=== PATIENT | male | born 1990 | race Caucasian/White ===

== ENCOUNTER → 2016-08-03 | Outpatient (CLI) | payer MEDICARE, MEDICAID ==
--- OUTSIDE RECORDS SUMMARY | 2016-08-03 15:31 | XMS REPORT | Continuity of Care Document ---
Author Author [facility] Organization [facility] Address Unknown Phone Unavailable Care Team Providers Care [employer] Name Role Phone Babita Hammond PCP [phone] Source Comments Some departments are not documenting in the electronic medical record. If you do not see the information that you expected, contact Release of Information in the Health Information Management department at [phone] for further assistance in locating additional records.[facility] Active Allergies and Adverse Reactions No Known Allergies Current Medications Prescription Sig. Disp. Refills Start End Date Status Date acyclovir (ZOVIRAX) 800 Take 1 Tab by mouth twice 60 Tab 5 12/03/19 Active mg tablet daily. 15 trimethoprim-sulfamethoxa Take 1 Tab by mouth twice 16 Tab 5 02/16/20 Active zole (BACTRIM DS) 160-800 daily twice weekly. Take 15 mg tablet on Mondays and . montelukast (SINGULAIR) Take 1 Tab by mouth at 30 Tab 11 03/02/20 Active 10 mg tablet bedtime daily. 15 LORazepam (ATIVAN) 0.5 mg Take 1 Tab by mouth at 30 Tab 0 05/14/20 Active tablet bedtime as needed for 15 Nausea, Vomiting or Other.... alendronate (FOSAMAX) 70 Take 1 Tab by mouth every 12 Tab 3 06/14/19 Active mg tablet 7 days. Take 1 Tab by 16 mouth every Sunday. Sit up for 30 minutes after taking. AMITRIPTYLINE HCL Apply to affected area up 100 g 1 08/09/19 Active (AMITRIPTYLINE/GABAPENTIN to four times a day as 16 /EMU OIL(#)) 4/4/10 % needed azithromycin (ZITHROMAX) 1 Tab three times weekly. 12 Tab 5 09/10/19 Active 250 mg tablet 16 other medication Diphon Rinse (Benadryl 420 mL 1 10/18/19 Active 100ml, Dexamethasone 16 0.5mg/5ml, Nystatin suspension 60ml, Doxycycline 300mg) Swish and spit 5ml before and after meals 4 times a day. ondansetron hcl (ZOFRAN) Take 1 Tab by mouth every 30 Tab 1 03/13/20 Active 8 mg tablet 8 hours as needed for 16 Nausea or Vomiting. hydrocortisone (CORTEF) Take 2 tabs in the 90 Tab 2 06/06/19 Active 10 mg tablet morning and one tab in 17 the evening with food. budesonide/formoterol Inhale 2 Puffs by mouth 3 Inhaler 3 06/08/19 Active (SYMBICORT) 160/4.5 mcg into the lungs twice 17 inhalation daily. gabapentin (NEURONTIN) Take 3 Caps by mouth 270 Cap 3 06/08/19 Active 300 mg capsule three times daily. 17 ergocalciferol (VITAMIN Take 1 Cap by mouth every 12 Cap 0 07/27/19 Active D-2) 50,000 unit capsule 7 days. 17 oxyCODONE (ROXICODONE) 5 Take 1-2 Tabs by mouth 90 Tab 0 07/26/19 Discontin mg tablet every 4 hours as needed 16 17 ued for Pain ergocalciferol (VITAMIN Take 1 Cap by mouth every 12 Cap 0 04/07/20 07/27/19 Discontin D-2) 50,000 unit capsule 7 days. 16 17 ued sodium polystyrene Take 120 mL by mouth once 120 mL 0 07/27/1907/27 sulfonate (KAYEXALATE) 15 for 1 dose. 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 Max grade 2 with GI symptoms of nausea and diarrhea Physical deconditioning 08/04/2014 Hodgkin lymphoma (HCC) 02/24/2014 Gait instability 10/07/2013 History of peripheral stem cell transplant ([facility]) 10/01/2013 Overview: Date of Transplant:08/10/14 Preparative Regimen:FLU BU Fully ablative/reduced intensity/NST: YAYO Disease:B-cell lymphoma unclassifiable relapsed Hodgkin's Disease status at transplant:2nd relapse resistant / refractory HLA Match:03/13 Donor & Cell source:24 Female unrelated donor PBSC CMV:rec: NEG Donor: POS ABO: rec: O-POS Donor: A-POS CMI index:1 Consents/Studies: YAYO, 8322, processing blood and classification and treatment director: Alyce Villalobos RN DATE OF TRANSPLANT: 09.30.2013 PREPARATIVE REGIMEN: R-BEAC DISEASE: KIRK ZONE LYMPHOMA DISEASE STATUS AT TRANSPLANT: PIF RESISTANT CMV: NEGATIVE CELL SOURCE: PERIPHERAL/ AUTOLOGOUS CONSENTS/STUDIES; AUTO, BLOOD, 8322 COORDINATOR: NELSON HERNANDEZ Neuropathy ([facility]) 09/28/2013 Lymphoma, mixed ([facility]) 09/18/2013 Resolved Problems Problem Noted Date Resolved Date RSV infection 06/21/2016 07/27/2016 Weakness 06/06/2016 06/21/2016 Dizziness 06/06/2016 06/21/2016 Non-intractable vomiting 01/20/2016 06/21/2016 Pneumonia of right lower lobe due to infectious organism ([facility]) 11/27/2015 01/20/2016 Cellulitis of left toe 09/02/2015 01/20/2016 Cough 08/23/2015 09/02/2015 Pneumonia 08/23/2015 01/20/2016 Hyponatremia 07/02/2015 01/20/2016 Ischemia of lower extremity 07/02/2015 06/21/2016 Fall from high chair 06/28/2015 01/20/2016 Cushingoid facies 06/28/2015 01/20/2016 Steroid-induced acne 06/28/2015 01/20/2016 Leg pain, left 06/14/2015 01/20/2016 Elevated LFTs 05/24/2015 06/09/2015 Elevated liver enzymes 05/24/2015 06/09/2015 Cramp of both lower extremities 05/17/2015 05/21/2015 Elevated LFTs 05/17/2015 01/20/2016 Chills (without fever) 05/17/2015 05/21/2015 Folliculitis 03/02/2015 05/17/2015 Decrease in appetite 03/02/2015 05/21/2015 Muscle strain 01/18/2015 05/17/2015 Anemia 01/18/2015 05/17/2015 Nausea 11/09/2014 05/21/2015 Increased sleeping 10/15/2014 05/17/2015 Parainfluenza 10/13/2014 05/17/2015 Cough 10/13/2014 05/17/2015 Fatigue 10/13/2014 05/17/2015 Fall at home 10/01/2014 09/02/2015 Occasional tremors 09/06/2014 10/01/2014 Hyperkalemia 09/06/2014 09/22/2014 Thrombocytopenia (HCC) 09/06/2014 01/20/2016 Episodic headache 09/05/2014 09/02/2015 Fall 09/01/2014 09/22/2014 Hypokalemia 08/25/2014 01/20/2016 Neutropenic fever (HCC) 08/24/2014 09/22/2014 Hypomagnesemia 08/18/2014 09/02/2015 Pancytopenia due to antineoplastic chemotherapy (HCC) 08/17/20142014 Nausea 08/15/2014 09/22/2014 Conditioning chemotherapy prior to peripheral blood stem cell transplant 08/201408/19/2014 Lymphadenopathy 02/07/2014 09/02/2015 Lymphoma (HCC) 02/06/2014 01/20/2016 Pancytopenia due to chemotherapy (HCC) 10/07/2013 09/22/2014 Anxiety 09/24/2013 01/20/2016 Most Recent Encounters Date Type Specialty Providers Description 07/27/2016 Hospital Oncology Rodríguez Magallon MD Encounter 07/27/2016 Office Visit Oncology Ruby Araujo APRN Chest pain, unspecified type (Primary Dx); Low vitamin D level; Hyperkalemia; Other chest pain; Bronchiolitis obliterans syndrome (HCC); History of peripheral stem cell transplant (HCC); 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); Nodular lymphocyte predominant Hodgkin lymphoma, unspecified body region 07/27/2016 Nurse Only Oncology Rodríguez Magallon MD 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); History of peripheral stem cell transplant (HCC); Vitamin D deficiency; Chest pain 07/27/2016 Hospital Radiology Biju Hein MD Arrived Encounter 07/27/2016 Office Visit Pulmonology Biju Hein MD Chest pain, unspecified type (Primary Dx); SOB (shortness of breath); Pulmonary nodule; Hx of Hodgkin's lymphoma; Bronchiolitis obliterans syndrome (HCC); 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); RSV infection; Cardiac angina (HCC) 07/27/2016 Hospital Biju Hein MD Encounter 07/27/2016 Telephone Pulmonology Biju Hein MD Results 07/27/2016 Screening Form 07/24/2016 Telephone Oncology Eileen Richey RN Medical Question 06/21/2016 Office Visit Oncology Rodríguez Magallon MD 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) (Primary Dx); History of peripheral stem cell transplant (HCC); Nodular sclerosing Hodgkin's lymphoma, unspecified body region (HCC); RSV infection; Adrenal insufficiency (HCC); Bronchiolitis obliterans syndrome (HCC); Rash 06/21/2016 Nurse Only Oncology Rodríguez Magallon MD 06/21/2016 Documentation Sony Zheng 06/08/2016 Refill Oncology Eileen Richey, MAXWELL 06/06/2016 Hospital Radiology Rodríguez Magallon MD Encounter 06/06/2016 Office Visit Oncology Aldair House DO Generalized abdominal Rodríguez Magallon MD pain (Primary Dx); H/O peripheral stem cell transplant (HCC); Night sweats; 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); History of peripheral stem cell transplant (HCC); Weakness; Other fatigue; Dizziness; Bronchiolitis obliterans syndrome (HCC); Nodular sclerosing Hodgkin's lymphoma, unspecified body region (HCC) 06/06/2016 Hospital Oncology Aldair House DO Encounter 06/06/2016 Screening Form 06/06/2016 Documentation Oncology Loan Encarnacion RN History of peripheral stem cell transplant (HCC) (Primary Dx) 06/05/2016 Telephone Oncology Leelee Sanches, MAXWELL Gland Swelling 06/05/2016 Orders Only Oncology Leelee Sanches RN H/O peripheral stem cell transplant (HCC) (Primary Dx); Night sweats 05/18/2016 Office Visit Oncology Dave Sepulveda MD 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) (Primary Dx); History of peripheral stem cell transplant (HCC); Nodular lymphocyte predominant Hodgkin lymphoma, unspecified body region (HCC); Vitamin D deficiency 05/18/2016 Nurse Only Oncology Dave Sepulveda MD H/O stem cell transplant (HCC) Immunizations Name Dates Previously Given Next Due Acthib Vaccine 07/26/2015, 04/19/2015, 02/15/2015, 04/07/2014 Flu Vaccine 03/06/2016, 02/15/2015, 04/28/2014 Quadrivalent=>3 Yo (Preservative Free) Hepatitis A Vaccine 04/07/2014 Hepatitis B Vaccine Adult 04/19/2015, 02/15/2015, 04/07/2014 3 Dose IM IPV 07/26/2015, 04/19/2015, 02/15/2015, 04/07/2014 Meningococcal Conjug 02/15/2015, 04/07/2014 Vaccine Pneumococcal 07/26/2015, 04/19/2015, 02/15/2015, 04/07/2014 Vaccine(13-[facility]/immunocompromised adult) Tdap Vaccine 07/26/2015, 04/19/2015, 02/15/2015, 04/07/2014 Social History Tobacco Use Types Packs/Day Years Used Date Never Smoker Smokeless Tobacco: Never Used Tobacco Cessation: Counseling Given: No Comments: Alcohol Use Drinks/Week oz/Week Comments No Last Filed Vital Signs Vital Sign Reading Time Taken Blood Pressure 115/62 07/27/2016 11:11 AM [employer] Pulse 67 07/27/2016 11:11 AM [employer] Temperature 36.4 C (97.6 F) 07/27/2016 11:11 AM [employer] Respiratory Rate 16 07/27/2016 11:11 AM [employer] Height 1.88 m (6' 2.02") 07/27/2016 11:11 AM [employer] Weight 74.299 kg (163 lb 12.8 07/27/2016 11:11 AM [employer] oz) Body Mass Index 21.02 07/27/2016 11:11 AM [employer] Oxygen Saturation 98% 07/27/2016 11:11 AM [employer] Plan of Care Date Type Specialty Providers Description 08/10/2016 Appointment Oncology 08/10/2016 Appointment Oncology Rodríguez Magallon MD [address] [facility] [address] [place] [address] [phone] (Fax) Health Maintenance Due Date Last Done Comments Physical (Comprehensive) 09/03/1998 Exam Influenza Vaccine 02/02/2017 03/06/2016, 02/15/2015, 04/28/2014 Tetanus Vaccine 07/26/2025 07/26/2015, 04/19/2015, 02/15/2015 Additional history exists Pertussis Vaccine Completed 07/26/2015, 04/19/2015, 02/15/2015 Additional history exists Results from Last 3 Months URIC ACID (07/27/2016 11:00 AM) Component Value Range Uric Acid 3.3 (L) 4.0-8.0 MG/DL MAGNESIUM (07/27/2016 11:00 AM) Component Value Range Magnesium 2.0 1.6-2.6 mg/dL LDH-LACTATE DEHYDROGENASE (07/27/2016 11:00 AM)Only the most recent of 2 results within the time period is included. Component Value Range Lactate Dehydrogenase 331 (H) 100-210 U/L TROPONIN-I (07/27/2016 11:00 AM) Component Value Range Troponin-I <0.01 0.0-0.05 NG/ML 25-OH VITAMIN D (D2 + D3) (07/27/2016 11:00 AM) Component Value Range Vitamin D(25-OH)Total 25.0 (L) 30-80 NG/ML Specimen Blood COMPREHENSIVE METABOLIC PANEL (07/27/2016 11:00 AM)Only the most recent of 4 results within the time period is included. Component Value Range Sodium 133 (L) 137-147 MMOL/L Potassium 5.6 (H) 3.5-5.1 MMOL/L Chloride 101 98-110 MMOL/L Glucose 80 70-100 MG/DL Blood Urea Nitrogen 9 7-25 MG/DL Creatinine 0.67 0.4-1.24 MG/DL Calcium 9.6 8.5-10.6 MG/DL Total Protein 7.5 6.0-8.0 G/DL Total Bilirubin 0.3 0.3-1.2 MG/DL Albumin 4.0 3.5-5.0 G/DL Alk Phosphatase 177 (H) 25-110 U/L AST (SGOT) 38 7-40 U/L CO2 31 (H) 21-30 MMOL/L ALT (SGPT) 41 7-56 U/L Anion Gap 1 (L) 3-12 eGFR Non >60Comment: >60 mL/min The eGFR is not validated for use in drug dosing adjustments. Continue to use estimated creatinine clearance per dosing reference text. Please contact the Clinical Pharmacist for questions. eGFR >60Comment: >60 mL/min The eGFR is not validated for use in drug dosing adjustments. Continue to use estimated creatinine clearance per dosing reference text. Please contact the Clinical Pharmacist for questions. Specimen Blood CBC AND DIFF (07/27/2016 11:00 AM)Only the most recent of 4 results within the time period is included. Component Value Range White Blood Cells 6.1 4.5-11.0 K/UL RBC 4.66 4.4-5.5 M/UL Hemoglobin 14.1 13.5-16.5 GM/DL Hematocrit 41.7 40-50 % MCV 89.6 80-100 FL MCH 30.2 26-34 PG MCHC 33.7 32.0-36.0 G/DL RDW 14.0 11-15 % Platelet Count 268 150-400 K/UL MPV 7.4 7-11 FL Neutrophils 56 41-77 % Lymphocytes 28 24-44 % Monocytes 10 4-12 % Eosinophils 5 0-5 % Basophils 1 0-2 % Absolute Neutrophil Count 3.50 1.8-7.0 K/UL Absolute Lymph Count 1.70 1.0-4.8 K/UL Absolute Monocyte Count 0.60 0-0.80 K/UL Absolute Eosinophil Count 0.30 0-0.45 K/UL Absolute Basophil Count 0.00 0-0.20 K/UL Specimen Blood CTA CHEST WO/W CONTRAST+POST IMPRESSION (07/27/2016 10:10 AM) Impressions 1. No evidence of pulmonary embolism. 2. No significant change in scattered irregular nodular opacities. This again most likely represents sequela of atypical infection. 3. Stable partially calcified and noncalcified mediastinal lymphadenopathy. Imaging surveillance is suggested. Finalized by Ramo Comer M.D. on 07/27/2016 10:35 AM. Dictated by Ramo Comer M.D. on 07/27/2016 10:20 AM. Narrative CTA Chest Clinical Indication: Shortness of breath. Chest pain. Technique: Multiple contiguous axial CT images were obtained through the chest with contrast. 70 ml of Isovue-370 was given intravenously. Image postprocessing was obtained according to the PE protocol. Comparison: June 06, [address] Findings: Axilla, Mediastinum and Sepideh: Partially calcified mediastinal lymph nodes are again noted. Moderate noncalcified mediastinal lymphadenopathy is again noted. The previously identified right paratracheal conglomerate is unchanged measuring 3.5 x 2.5 cm on series 3, image 73. The partially calcified anterior mediastinal anand conglomerate is also unchanged measuring 3.0 x 1.3 cm on image 98. Heart and Great Vessels: There are no filling defects in the pulmonary arteries identified to suggest pulmonary embolism. The heart size is Normal.There is no pericardial effusion. Lungs and Pleura: Scattered small irregular nodular opacities are again seen in both lungs. A technical account representative right upper lobe nodule measures 1.0 cm on series 3 , image 86 which is unchanged in size. Others remain unchanged such as in the right lung on image 71, 95, 115 and 147, as well as in the left lung on image 68 , 69 and 178, for example. Suture material and scarring is again seen in the anterior right lung base.No pleural effusions. Chest Wall and Osseous Structures: No destructive osseous lesions. Visualized Upper Abdomen: No significant upper abdominal abnormalities are identified. Procedure Note Interface, Radiant Results - Nicolle Jul 27, 2016 10:38 AM [employer] CTA Chest Clinical Indication: Shortness of breath. Chest pain. Technique: Multiple contiguous axial CT images were obtained through the chest with contrast. 70 ml of Isovue-370 was given intravenously. Image postprocessing was obtained according to the PE protocol. Comparison: June 06, [address] Findings: Axilla, Mediastinum and Sepideh: Partially calcified mediastinal lymph nodes are again noted. Moderate noncalcified mediastinal lymphadenopathy is again noted. The previously identified right paratracheal conglomerate is unchanged measuring 3.5 x 2.5 cm on series 3, image 73. The partially calcified anterior mediastinal anand conglomerate is also unchanged measuring 3.0 x 1.3 cm on image 98. Heart and Great Vessels: There are no filling defects in the pulmonary arteries identified to suggest pulmonary embolism. The heart size is Normal.There is no pericardial effusion. Lungs and Pleura: Scattered small irregular nodular opacities are again seen in both lungs. A technical account representative right upper lobe nodule measures 1.0 cm on series 3 , image 86 which is unchanged in size. Others remain unchanged such as in the right lung on image 71, 95, 115 and 147, as well as in the left lung on image 68 , 69 and 178, for example. Suture material and scarring is again seen in the anterior right lung base. No pleural effusions. Chest Wall and Osseous Structures: No destructive osseous lesions. Visualized Upper Abdomen: No significant upper abdominal abnormalities are identified. IMPRESSION 1. No evidence of pulmonary embolism. 2. No significant change in scattered irregular nodular opacities. This again most likely represents sequela of atypical infection. 3. Stable partially calcified and noncalcified mediastinal lymphadenopathy. Imaging surveillance is suggested. Finalized by Ramo Comer M.D. on 07/27/2016 10:35 AM. Dictated by Ramo Comer M.D. on 07/27/2016 10:20 AM. OR ECG ROUTINE ECG W/LEAST 12 LDS W/I&R (07/27/2016 9:27 AM)PFT COMPLETE PULM FUNCTION (07/27/2016 7:47 AM) Component Value Range FVC-Pre 4.22 L FVC-%Pred-pre 67 % FEV1-Pre 3.66 L FEV1-%Pred-Pre 71 % [id number]-Hay 3.71 L/sec IYX2161-%Pred-Pre 72 % VCSVC-Pre 4.20 L ICSVC-Pre 2.51 L ERVSVC-Pre 1.68 L PEF-Pre 505.9 L/min TGVPleth-Pre 3.29 L RVPleth-Pre 1.69 L RVPleth-%Pred-Pre 97 % TLCPleth-Pre 5.81 L TLCPleth-%Pred-Pre 75 % DLCOunc-Pred 38.14 ml/min/mmHg DLCOunc-Pre 27.07 ml/min/mmHg DLCOunc-%Pred-Pre 70 % DLCOunc-SD 6.04 ml/min/mmHg DLCOunc-LLN 26.06 ml/min/mmHg DLCOunc-ULN 50.22 ml/min/mmHg DLCOunc-#SD -1.833 ml/min/mmHg DLVA-Pred 5.10 ml/min/mmHg/L DLVA-Pre 5.01 ml/min/mmHg/L DLVA-%Pred-Pre 98 % DLVA-SD 0.73 ml/min/mmHg/L DLVA-LLN 3.64 ml/min/mmHg/L DLVA-ULN 6.56 ml/min/mmHg/L DLVA-#SD -0.121 ml/min/mmHg/L CORTISOL 30 MINUTES POST (06/06/2016 11:10 AM) Component Value Range Cortisol 30 Min 18.3 ug/dL Specimen Blood CORTISOL BASELINE (06/06/2016 10:11 AM) Component Value Range Cortisol Baseline 13.5 ug/dL Specimen Blood CORTISOL 60 MINUTES POST (06/06/2016 10:11 AM) Component Value Range Cortisol 60 Min 19.6 ug/dL Specimen Blood RVP VIRAL PANEL PCR (06/06/2016 10:11 AM) Component Value Range Specimen Source NASAL WASH Adenovirus NOT DETECTED Coronavirus 229E NOT DETECTED Coronavirus HKU1 NOT DETECTED Coronavirus NL63 NOT DETECTED Coronavirus OC43 NOT DETECTED Human Metapneumovirus NOT DETECTED Human NOT DETECTED Rhinovirus/ENTEROVIRUS Influenza A H1N1 2009 NOT DETECTED Influenza A H1 NOT DETECTED Influenza A H3 NOT DETECTED Influenza B NOT DETECTED Parainfluenza 1 NOT DETECTED Parainfluenza 2 NOT DETECTED Parainfluenza 3 NOT DETECTED Parainfluenza 4 NOT DETECTED RSV DETECTED Bordetella Pertussis NOT DETECTED Chlamydophila Pneumoniae NOT DETECTED Mycoplasma Pneumoniae NOT DETECTED Specimen Nasal Wash CT ABDOMEN W CONTRAST (06/06/2016 9:59 AM) Impressions CHEST: 1.Improvement in the nodular infiltrate within the right lower lobe, likely representing improvement in opportunistic infection with minimal residual scarring. 2.Unchanged ill-defined opacities and soft tissue thickening within the right perihilar region and upper lungs. Given recent negative PET imaging, this is favored to represent post therapeutic scarring. 3.High-resolution images demonstrate no significant bronchiectasis, fibrosis , or air trapping. 4.Unchanged mediastinal lymphadenopathy, compatible with treated lymphoma. 5.Unchanged sclerotic lesion within the T3 vertebral body, which remains compatible with treated osseous involvement by lymphoma. ABDOMEN: No abdominopelvic mass or lymphadenopathy to suggest active lymphoma. By my electronic signature, I attest that I have personally reviewed the images for this examination and formulated the interpretations and opinions expressed in this report Finalized by Bruce High D.O. on 06/06/2016 12:31 PM. Dictated by Rod Kitchen M.D. on 06/06/2016 9:[address] CHEST WITHOUT CONTRAST AND ABDOMEN WITH CONTRAST CLINICAL HISTORY: 25-year-old male, Hodgkin lymphoma status post peripheral stem cell transplant, generalized abdominal pain, cough. TECHNIQUE: Multiple contiguous axial images were obtained through the chest without IV contrast and abdomen with IV contrast. Inspiratory, expiratory, portal venous and delayed imaging was obtained. Post processing coronal and sagittal reconstruction images were made from the axial images. COMPARISON: PET scan April 06, 2016, CT chest November 22, 2015, CT CAP February 21, 2015. IV CONTRAST: Isovue-370 BOWEL CONTRAST: None CHEST FINDINGS: Lower Neck: Unremarkable. Axilla, Mediastinum and Sepideh: No axillary lymphadenopathy. There is persistent mediastinal lymphadenopathy. There has been no significant change in size of the right paratracheal lymph node conglomerate, measuring 3.5 x 2.5 cm (series 2 image 17), previously 3.5 x 2.4 cm. There has been no significant change in size of the partially calcified anterior mediastinal anand conglomerate, measuring 3.0 x 1.3 cm (series 2 image 25), previously 2.8 x 1.3 cm. No definite hilar lymphadenopathy is identified, although evaluation is limited in the absence of IV contrast. Heart and Great Vessels: The heart remains normal in size with trace pericardial fluid. The thoracic aorta is normal in caliber. Airway, Lungs and Pleura: The central airways are widely patent. No pleural effusion, pneumothorax, or lobar consolidation is identified. There has been no significant change of ill-defined patchy opacities within the right perihilar region and bilateral upper lungs (series 2 images 18, 19, and 23). There has been slight improvement in the nodular infiltrate within the right lower lobe ( series 2 image 31). Inspiratory and expiratory images again demonstrate no significant bronchiectasis, fibrosis, or air trapping. Stable appearance of suture material along the medial aspect of the right anterior lung. Chest Wall and Osseous Structures: Mild thoracic spondylosis. A well circumscribed sclerotic lesion within the T3 vertebral body is unchanged in appearance. No destructive osseous lesions are identified. ABDOMEN FINDINGS: Liver and Biliary system: The liver remains normal in size. No focal hepatic lesions are identified. The main portal vein is patent. No calcified gallstones are identified. Spleen: The spleen is normal in size. No focal splenic lesions are identified. Adrenal Glands and Kidneys: Unremarkable. Pancreas and Retroperitoneum: The pancreas is unremarkable. No retroperitoneal lymphadenopathy. Aorta and Major Vessels: The abdominal aorta is normal in caliber. Bowel, Mesentery and Peritoneal space: Only minimal ingested oral contrast is visualized within the gastric fundus. The visualized loops of large and small bowel are normal in caliber. No obstruction or ascites. Abdominal wall and Osseous Structures: Mild multilevel Schmorl's node deformities are redemonstrated. No destructive osseous lesions are identified. Procedure Note Interface, Radiant Results - Tue Jun 06, 2016 12:34 [address] [employer] CT CHEST WITHOUT CONTRAST AND ABDOMEN WITH CONTRAST CLINICAL HISTORY: 25-year-old male, Hodgkin lymphoma status post peripheral stem cell transplant , generalized abdominal pain, cough. TECHNIQUE: Multiple contiguous axial images were obtained through the chest without IV contrast and abdomen with IV contrast. Inspiratory, expiratory, portal venous and delayed imaging was obtained. Post processing coronal and sagittal reconstruction images were made from the axial images. COMPARISON: PET scan April 06, 2016, CT chest November 22, 2015, CT CAP February 21, 2015. IV CONTRAST: Isovue-370 BOWEL CONTRAST: None CHEST FINDINGS: Lower Neck: Unremarkable. Axilla, Mediastinum and Sepideh: No axillary lymphadenopathy. There is persistent mediastinal lymphadenopathy. There has been no significant change in size of the right paratracheal lymph node conglomerate, measuring 3.5 x 2.5 cm (series 2 image 17), previously 3.5 x 2.4 cm. There has been no significant change in size of the partially calcified anterior mediastinal anand conglomerate, measuring 3.0 x 1.3 cm (series 2 image 25), previously 2.8 x 1.3 cm. No definite hilar lymphadenopathy is identified, although evaluation is limited in the absence of IV contrast. Heart and Great Vessels: The heart remains normal in size with trace pericardial fluid. The thoracic aorta is normal in caliber. Airway, Lungs and Pleura: The central airways are widely patent. No pleural effusion, pneumothorax, or lobar consolidation is identified. There has been no significant change of ill-defined patchy opacities within the right perihilar region and bilateral upper lungs (series 2 images 18, 19, and 23). There has been slight improvement in the nodular infiltrate within the right lower lobe ( series 2 image 31). Inspiratory and expiratory images again demonstrate no significant bronchiectasis, fibrosis, or air trapping. Stable appearance of suture material along the medial aspect of the right anterior lung. Chest Wall and Osseous Structures: Mild thoracic spondylosis. A well circumscribed sclerotic lesion within the T3 vertebral body is unchanged in appearance. No destructive osseous lesions are identified. ABDOMEN FINDINGS: Liver and Biliary system: The liver remains normal in size. No focal hepatic lesions are identified. The main portal vein is patent. No calcified gallstones are identified. Spleen: The spleen is normal in size. No focal splenic lesions are identified. Adrenal Glands and Kidneys: Unremarkable. Pancreas and Retroperitoneum: The pancreas is unremarkable. No retroperitoneal lymphadenopathy. Aorta and Major Vessels: The abdominal aorta is normal in caliber. Bowel, Mesentery and Peritoneal space: Only minimal ingested oral contrast is visualized within the gastric fundus. The visualized loops of large and small bowel are normal in caliber. No obstruction or ascites. Abdominal wall and Osseous Structures: Mild multilevel Schmorl's node deformities are redemonstrated. No destructive osseous lesions are identified. IMPRESSION CHEST: 1. Improvement in the nodular infiltrate within the right lower lobe, likely representing improvement in opportunistic infection with minimal residual scarring. 2. Unchanged ill-defined opacities and soft tissue thickening within the right perihilar region and upper lungs. Given recent negative PET imaging, this is favored to represent post therapeutic scarring. 3. High-resolution images demonstrate no significant bronchiectasis, fibrosis , or air trapping. 4. Unchanged mediastinal lymphadenopathy, compatible with treated lymphoma. 5. Unchanged sclerotic lesion within the T3 vertebral body, which remains compatible with treated osseous involvement by lymphoma. ABDOMEN: No abdominopelvic mass or lymphadenopathy to suggest active lymphoma. By my electronic signature, I attest that I have personally reviewed the images for this examination and formulated the interpretations and opinions expressed in this report Finalized by Bruce High D.O. on 06/06/2016 12:31 PM. Dictated by Rod Kitchen M.D. on 06/06/2016 9:[address] CHEST WO CONTRAST (06/06/2016 9:59 AM) Impressions CHEST: 1.Improvement in the nodular infiltrate within the right lower lobe, likely representing improvement in opportunistic infection with minimal residual scarring. 2.Unchanged ill-defined opacities and soft tissue thickening within the right perihilar region and upper lungs. Given recent negative PET imaging, this is favored to represent post therapeutic scarring. 3.High-resolution images demonstrate no significant bronchiectasis, fibrosis , or air trapping. 4.Unchanged mediastinal lymphadenopathy, compatible with treated lymphoma. 5.Unchanged sclerotic lesion within the T3 vertebral body, which remains compatible with treated osseous involvement by lymphoma. ABDOMEN: No abdominopelvic mass or lymphadenopathy to suggest active lymphoma. By my electronic signature, I attest that I have personally reviewed the images for this examination and formulated the interpretations and opinions expressed in this report Finalized by Bruce High D.O. on 06/06/2016 12:31 PM. Dictated by Rod Kitchen M.D. on 06/06/2016 9:[address] CHEST WITHOUT CONTRAST AND ABDOMEN WITH CONTRAST CLINICAL HISTORY: 25-year-old male, Hodgkin lymphoma status post peripheral stem cell transplant, generalized abdominal pain, cough. TECHNIQUE: Multiple contiguous axial images were obtained through the chest without IV contrast and abdomen with IV contrast. Inspiratory, expiratory, portal venous and delayed imaging was obtained. Post processing coronal and sagittal reconstruction images were made from the axial images. COMPARISON: PET scan April 06, 2016, CT chest November 22, 2015, CT CAP February 21, 2015. IV CONTRAST: Isovue-370 BOWEL CONTRAST: None CHEST FINDINGS: Lower Neck: Unremarkable. Axilla, Mediastinum and Sepideh: No axillary lymphadenopathy. There is persistent mediastinal lymphadenopathy. There has been no significant change in size of the right paratracheal lymph node conglomerate, measuring 3.5 x 2.5 cm (series 2 image 17), previously 3.5 x 2.4 cm. There has been no significant change in size of the partially calcified anterior mediastinal anand conglomerate, measuring 3.0 x 1.3 cm (series 2 image 25), previously 2.8 x 1.3 cm. No definite hilar lymphadenopathy is identified, although evaluation is limited in the absence of IV contrast. Heart and Great Vessels: The heart remains normal in size with trace pericardial fluid. The thoracic aorta is normal in caliber. Airway, Lungs and Pleura: The central airways are widely patent. No pleural effusion, pneumothorax, or lobar consolidation is identified. There has been no significant change of ill-defined patchy opacities within the right perihilar region and bilateral upper lungs (series 2 images 18, 19, and 23). There has been slight improvement in the nodular infiltrate within the right lower lobe ( series 2 image 31). Inspiratory and expiratory images again demonstrate no significant bronchiectasis, fibrosis, or air trapping. Stable appearance of suture material along the medial aspect of the right anterior lung. Chest Wall and Osseous Structures: Mild thoracic spondylosis. A well circumscribed sclerotic lesion within the T3 vertebral body is unchanged in appearance. No destructive osseous lesions are identified. ABDOMEN FINDINGS: Liver and Biliary system: The liver remains normal in size. No focal hepatic lesions are identified. The main portal vein is patent. No calcified gallstones are identified. Spleen: The spleen is normal in size. No focal splenic lesions are identified. Adrenal Glands and Kidneys: Unremarkable. Pancreas and Retroperitoneum: The pancreas is unremarkable. No retroperitoneal lymphadenopathy. Aorta and Major Vessels: The abdominal aorta is normal in caliber. Bowel, Mesentery and Peritoneal space: Only minimal ingested oral contrast is visualized within the gastric fundus. The visualized loops of large and small bowel are normal in caliber. No obstruction or ascites. Abdominal wall and Osseous Structures: Mild multilevel Schmorl's node deformities are redemonstrated. No destructive osseous lesions are identified. Procedure Note Interface, Radiant Results - Tue Jun 06, 2016 12:34 PM [employer] CT CHEST WITHOUT CONTRAST AND ABDOMEN WITH CONTRAST CLINICAL HISTORY: 25-year-old male, Hodgkin lymphoma status post peripheral stem cell transplant , generalized abdominal pain, cough. TECHNIQUE: Multiple contiguous axial images were obtained through the chest without IV contrast and abdomen with IV contrast. Inspiratory, expiratory, portal venous and delayed imaging was obtained. Post processing coronal and sagittal reconstruction images were made from the axial images. COMPARISON: PET scan April 06, 2016, CT chest November 22, 2015, CT CAP February 21, 2015. IV CONTRAST: Isovue-370 BOWEL CONTRAST: None CHEST FINDINGS: Lower Neck: Unremarkable. Axilla, Mediastinum and Sepideh: No axillary lymphadenopathy. There is persistent mediastinal lymphadenopathy. There has been no significant change in size of the right paratracheal lymph node conglomerate, measuring 3.5 x 2.5 cm (series 2 image 17), previously 3.5 x 2.4 cm. There has been no significant change in size of the partially calcified anterior mediastinal anand conglomerate, measuring 3.0 x 1.3 cm (series 2 image 25), previously 2.8 x 1.3 cm. No definite hilar lymphadenopathy is identified, although evaluation is limited in the absence of IV contrast. Heart and Great Vessels: The heart remains normal in size with trace pericardial fluid. The thoracic aorta is normal in caliber. Airway, Lungs and Pleura: The central airways are widely patent. No pleural effusion, pneumothorax, or lobar consolidation is identified. There has been no significant change of ill-defined patchy opacities within the right perihilar region and bilateral upper lungs (series 2 images 18, 19, and 23). There has been slight improvement in the nodular infiltrate within the right lower lobe ( series 2 image 31). Inspiratory and expiratory images again demonstrate no significant bronchiectasis, fibrosis, or air trapping. Stable appearance of suture material along the medial aspect of the right anterior lung. Chest Wall and Osseous Structures: Mild thoracic spondylosis. A well circumscribed sclerotic lesion within the T3 vertebral body is unchanged in appearance. No destructive osseous lesions are identified. ABDOMEN FINDINGS: Liver and Biliary system: The liver remains normal in size. No focal hepatic lesions are identified. The main portal vein is patent. No calcified gallstones are identified. Spleen: The spleen is normal in size. No focal splenic lesions are identified. Adrenal Glands and Kidneys: Unremarkable. Pancreas and Retroperitoneum: The pancreas is unremarkable. No retroperitoneal lymphadenopathy. Aorta and Major Vessels: The abdominal aorta is normal in caliber. Bowel, Mesentery and Peritoneal space: Only minimal ingested oral contrast is visualized within the gastric fundus. The visualized loops of large and small bowel are normal in caliber. No obstruction or ascites. Abdominal wall and Osseous Structures: Mild multilevel Schmorl's node deformities are redemonstrated. No destructive osseous lesions are identified. IMPRESSION CHEST: 1. Improvement in the nodular infiltrate within the right lower lobe, likely representing improvement in opportunistic infection with minimal residual scarring. 2. Unchanged ill-defined opacities and soft tissue thickening within the right perihilar region and upper lungs. Given recent negative PET imaging, this is favored to represent post therapeutic scarring. 3. High-resolution images demonstrate no significant bronchiectasis, fibrosis , or air trapping. 4. Unchanged mediastinal lymphadenopathy, compatible with treated lymphoma. 5. Unchanged sclerotic lesion within the T3 vertebral body, which remains compatible with treated osseous involvement by lymphoma. ABDOMEN: No abdominopelvic mass or lymphadenopathy to suggest active lymphoma. By my electronic signature, I attest that I have personally reviewed the images for this examination and formulated the interpretations and opinions expressed in this report Finalized by Bruce High D.O. on 06/06/2016 12:31 PM. Dictated by Rod Kitchen M.D. on 06/06/2016 9:50 AM.
[2016-08-03 15:38] LABS: BASOPHILS % (AUTO) 0 % (0-10); EOSINOPHILS # (AUTO) 0.4 10^3/uL (0.0-0.3); EOSINOPHILS % (AUTO) 5 % (0-10); LYMPHOCYTES # (AUTO) 1.9 X 10^3 (1.0-4.0); LYMPHOCYTES % (AUTO) 25 % (12-44); MEAN CORPUSCULAR HEMOGLOBIN 30 PG (25-34); MEAN CORPUSCULAR HGB CONC 34 G/DL (32-36); MEAN CORPUSCULAR VOLUME 88 FL (80-99); MEAN PLATELET VOLUME 9.1 FL (7.4-10.4); MONOCYTES # (AUTO) 0.9 X 10^3 (0.0-1.0); MONOCYTES % (AUTO) 12 % (0-12); NEUTROPHILS # (AUTO) 4.3 X 10^3 (1.8-7.8); NEUTROPHILS % (AUTO) 58 % (42-75); PLATELET COUNT 300 10^3/uL (130-400); RED BLOOD COUNT 4.37 10^6/uL (4.35-5.85); RED CELL DISTRIBUTION WIDTH 13.8 % (10.0-14.5); WHITE BLOOD COUNT 7.5 10^3/uL (4.3-11.0)
[2016-08-03 16:10] LABS: ALANINE AMINOTRANSFERASE 47 U/L (0-55); ALBUMIN 3.9 G/DL (3.2-4.5); ANION GAP 9 MMOL/L (5-14); ASPARTATE AMINO TRANSFERASE 43 U/L (5-34); BILIRUBIN,TOTAL 0.3 MG/DL (0.1-1.0); BLOOD UREA NITROGEN 10 MG/DL (7-18); BUN/CREATININE RATIO 14; CALCIUM 9.2 MG/DL (8.5-10.1); CARBON DIOXIDE 26 MMOL/L (21-32); CHLORIDE 104 MMOL/L (98-107); CREATININE SERUM 0.69 MG/DL (0.60-1.30); GFR ESTIMATED > 60; GLUCOSE 77 MG/DL (70-105); POTASSIUM 4.3 MMOL/L (3.6-5.0); SODIUM 139 MMOL/L (135-145); TOTAL PROTEIN 6.9 G/DL (6.4-8.2)
== END ==
LOC: LAB 15:27
PROVIDERS: ATTEND Nurse Practitioner
DX: R07.9 Chest pain, unspecified (principal)
CPT/HCPCS: 36415; 80053; 85025